=== PATIENT | male | born 1945 | race Two or more races ===

== ENCOUNTER → 2020-10-07 | Outpatient (CLI) | payer OTHER | END | disposition home or self-care (01) | LOC: OFIC 805 12:40 | PROVIDERS: ATTEND Otolaryngology | DX: H72.91 Unspecified perforation of tympanic membrane, right ear (principal); H90.3 Sensorineural hearing loss, bilateral; H61.23 Impacted cerumen, bilateral ==

== ENCOUNTER 2020-10-28 10:09 | Outpatient (CLI) | payer OTHER | END 2020-10-28 16:27 | disposition home or self-care (01) | LOC: OFIC 805 10:09 → EDBD 10:09 → OFIC 805 16:27 | PROVIDERS: ATTEND Otolaryngology | DX: H72.91 Unspecified perforation of tympanic membrane, right ear (principal); H91.8X3 Other specified hearing loss, bilateral; H60.8X2 Other otitis externa, left ear ==

== ENCOUNTER 2020-11-16 09:18 | Outpatient (CLI) | payer OTHER | END 2020-11-16 10:52 | disposition home or self-care (01) | LOC: OFIC 805 09:18 | PROVIDERS: ATTEND Otolaryngology | DX: L30.8 Other specified dermatitis (principal) ==